=== PATIENT | male | born 1995 | race American Indian/Alaskan Native ===

== ENCOUNTER 2017-02-11 06:34 | Emergency (ER) | payer OTHER ==
[2017-02-11 07:11] VITALS: BP 133/73
--- NOTE | 2017-02-11 08:12 | Emergency Department Report ---
Chief Complaint: Extremity Injury, Lower Stated Complaint: LT LEG PAIN Time Seen by Provider: 02/11/17 07:00 - HPI History of Present Illness: at triage window nad will need xray - ROS Review of Systems: leg pain - Exam Vital Signs: Vital Signs 02/11/17 07:08 Temperature 97.7 F Pulse Rate 76 Respiratory 16 Rate Blood Pressure 133/73 O2 Sat by Pulse 98 Oximetry Physical Exam: nad ambulatory MSE screening note: Focused history and physical exam performed. Due to findings the following was ordered: ambulatory xray ordered no answer at 0730 per rn [facility] ED Disposition for MSE Condition: Stable Referrals: PRIMARY CARE, [Primary Care Provider] - 3-5 Days
== END 2017-02-11 07:30 | disposition left against medical advice (07) ==
LOC: ED 06:34
DX: M79.605 Pain in left leg (principal); Z53.21 Procedure and treatment not carried out due to patient leaving prior to being seen by health care provider